=== PATIENT | female | born 1980 | race Two or more races ===

== ENCOUNTER 2025-05-16 22:34 | Emergency (ER) | payer MEDICAID, OTHER ==
[~2025-05-16] VITALS: Ht 170.2 cm; Wt 82.0 kg
[2025-05-16 22:42] VITALS: TEMP 97.7
[2025-05-16] MEDS: methylPREDNISolone SOD SUCC 125 MG/2 ML VL IV ONE (22:44)
[2025-05-16] MEDS: diphenhydrAMINE HCL 50 MG/1 ML VL IV ONE (22:44)
[2025-05-16] MEDS: ALBUTEROL SULF 2.5 MG/0.5ML(0.5%) NEB SOLN NEB ONE (22:51)
[2025-05-16] MEDS: FAMOTIDINE INJECTION 40 MG in SODIUM CHL 0.9% 100 ML IV ONE (22:57)
--- NOTE | 2025-05-16 23:09 | ED.PDOC ---
HPI Allergic reaction HPI Comments 44 y/o F, with a history of hypertension - unmedicated, is BIBA from private residence for c/c of anaphylaxis. Patient reports on sudden onset of symptoms at 2130, this evening, while returning home from work. She reports history of allergies to felines but denies any known recent exposure, this evening. Associated facial swelling, itchiness, and shortness of breath. En route, patient was given 5mg Albuterol and 0.5mg Atrovent - DuoNeb and 0.50mg of benarydryl and 0.6mg of epinephrine by EMS personnel. Chief Complaint: Allergic Reaction Time Seen by MD: 22:35 Reviewed Notes: Nurses Notes, Methods Time Analyst Notes, Medications, Allergies Allergies: Coded Allergies: NO KNOWN ALLERGIES (Unverified , 05/16/25) Home Meds Active Scripts Diphenhydramine Hcl (BENADRYL CAPSULE) 25 Mg Cp, 25 MG PO Q6HP PRN, #60 CAP Prov:AMADEO POE MD 05/16/25 Famotidine (PEPCID TABLET) 20 Mg Tb, 1 TAB PO BID PRN, #60 TAB 5 Refills Prov:AMADEO POE MD 05/16/25 Epinephrine (Anaphylaxis) (Auvi-Q) 0.1 Mg/0.1 Ml Inj, 0.1 MG IJ O PRN for 1 Day, #1 INJ 3 Refills Prov:AMADEO POE MD 05/16/25 Prednisone (Prednisone) 20 Mg Tab, 20 MG PO BID for 5 Days, #10 TAB Prov:AMADEO POE MD 05/16/25 Information Source: Patient, Emergency Med Personnel Mode of Arrival: EMS Severity: Moderate Rash: None SOB: Moderate Difficulty swallowing: Moderate Pruritus: Moderate Timing: Minutes Duration: Since onset Prehospital treatment: 12 Lead EKG, Breathing Tx (5mg Albuterol and 0.5mg Atrovent DuoNeb), Fingernail Sculpturer, Treatment (0.50mg benadryl; 0.6 epinephrine) Past Medical History PAST MEDICAL HISTORY: HTN Surgical History: Denies all surgeries FACILITY PLANNER History: Denies all FACILITY PLANNER Hx Family History Family History: Unknown Social History Smoker: Non-Smoker Alcohol: Denies ETOH Use Drugs: Denies Drug Use Lives In: Home All Other Systems: Reviewed and Negative (Comprehensive review of systems are negative unless stated in HPI) Physical Exam General Appearance: No Apparent Distress, Normal HEENT: Pharynx Normal, TMs Normal, Other (bilateral periorbital edema ) Neck: Full Range of Motion, Non-Tender, Normal, Normal Inspection Respiratory: Chest Non-Tender, Lungs Clear, No Accessory Muscle Use, No Respiratory Distress, Normal Breath Sounds Cardiovascular: No Edema, No JVD, No Murmur, No Gallop, Normal Peripheral Pulses, Regular Rate/Rhythm Breast Exam: Deferred Gastrointestinal: No Organomegaly, Non Tender, No Pulsatile Mass, Normal Bowel Sounds, Soft Genitalia: Deferred Pelvic: Deferred Rectal: Deferred Extremities: No calf tenderness, Normal capillary refill, Normal inspection, Normal range of motion, Non-tender, No pedal edema Musculoskeletal : Apperance: Normal Neurologic: Alert, shipping and receiving weigher II-XII nml as Tested, No Motor Deficits, Normal Affect, Normal Mood, No Sensory Deficits Cerebellar Function: Normal Reflexes: Normal Skin: Dry, Normal Color, Warm Lymphatic: No Adenopathy Was a procedure done? Was a procedure done?: No Differential diagnosis (all) Differential Diagnosis: Anaphylaxis, Angioedema, Contact Dermatitis, Hypotension, Respiratory Failure, Shock, Urticaria X-Ray, Labs, Meds, VS Vital Signs Date Time Temp Pulse Resp B/P (MAP) Pulse Ox O2 Delivery O2 Flow Rate FiO2 05/16/25 23:55 75 12 132/84 (100) 97 05/16/25 22:51 23 98 Room Air* 0 21 05/16/25 22:42 Room Air* 0 21 05/16/25 22:42 97.7 76 13 152/83 (106) 96 97.7 05/16/25 22:34 97.6 84 18 139/95 100 97.6 Current Medications Medications (Trade) Dose Ordered Sig/Evan Route Start Time Stop Time Status Last Admin Methylprednisolone Sodium Succinate (Solu Medrol) 125 mg ONCE ONCE IV 05/16/25 22:45 05/16/25 22:46 DC 05/16/25 22:44 Famotidine 40 mg/ Sodium Chloride 104 ml @ 416 mls/hr ONCE ONCE IV 05/16/25 22:45 05/16/25 22:59 DC 05/16/25 22:57 Albuterol (Ventolin Medneb) 2.5 mg ONCE ONCE NEB 05/16/25 22:45 05/16/25 22:46 DC 05/16/25 22:51 Time of 1ST Reevaluation: 23:05 Reevaluation 1ST: Unchanged Patient Education/Counseling: Diagnosis, Treatment Family Education/Counseling: No Family Present SEPSIS Sepsis Screen Date sepsis recognized/suspect: May 16, 2025 Time Sepsis recognized/suspect: 2233 Recent Procedure: No On Antibiotic Therapy: No Respiratory Rate >20: No Heart Rate >90: No Temp<36 C (96.8 F) or >38.3 C: No SBP <90 or MAP <65 mmHG: No New Acute Mental Status Change: No Is the patient on CPAP, BIPAP,: No Physician Orders Fingernail Sculpturer (05/16/25 ) Pulse Oximetry (05/16/25 ) Vital Signs Date Time Temp Pulse Resp B/P (MAP) Pulse Ox O2 Delivery O2 Flow Rate FiO2 05/16/25 23:55 75 12 132/84 (100) 97 05/16/25 22:51 23 98 Room Air* 0 21 05/16/25 22:42 Room Air* 0 21 05/16/25 22:42 97.7 76 13 152/83 (106) 96 97.7 05/16/25 22:34 97.6 84 18 139/95 100 97.6 Medications Medications Dose Ordered Sig/Evan Route Start Time Stop Time Status Last Admin Dose Admin Albuterol 2.5 mg ONCE ONCE NEB 05/16/25 22:45 05/16/25 22:46 DC 05/16/25 22:51 Famotidine 40 mg/ Sodium Chloride 104 ml @ 416 mls/hr ONCE ONCE IV 05/16/25 22:45 05/16/25 22:59 DC 05/16/25 22:57 Methylprednisolone Sodium Succinate 125 mg ONCE ONCE IV 05/16/25 22:45 05/16/25 22:46 DC 05/16/25 22:44 Departure 1 Departure Time of Disposition: 01:00 Impression: Primary Impression: Allergic reaction Disposition: HOME / SELF CARE / HOMELESS Condition: Stable e-Prescriptions Diphenhydramine Hcl (BENADRYL CAPSULE) 25 Mg Cp 25 MG PO Q6HP PRN, #60 CAP Prov: AMADEO POE MD 05/16/25 Famotidine (PEPCID TABLET) 20 Mg Tb 1 TAB PO BID PRN, #60 TAB 5 Refills Prov: AMADEO POE MD 05/16/25 Epinephrine (Anaphylaxis) (Auvi-Q) 0.1 Mg/0.1 Ml Inj 0.1 MG IJ O PRN for 1 Day, #1 INJ 3 Refills Prov: AMADEO POE MD 05/16/25 Prednisone (Prednisone) 20 Mg Tab 20 MG PO BID for 5 Days, #10 TAB Prov: AMADEO POE MD 05/16/25 Discharged With: Self Critical Care Note Critical Care Time?: Yes (35 min-critical care time only) Stability Stability form required: No Heart Score Heart Score: Heart Score Response (Comments) Value History N/A 0 EKG N/A 0 Age N/A 0 Risk Factors N/A 0 Troponin N/A 0 Total 0 I personally scribed for AMADEO POE MD ([email or web address]) on 05/16/25 at 23:09. Electronically submitted by Dieter Khan [email or web address]). AMADEO POE MD May 16, 2025 23:09
[2025-05-16] MEDS ORDERED: FAMO20TA10 PO (23:51)
[2025-05-16] MEDS ORDERED: DIPH25CA51 PO (23:51)
[2025-05-16] MEDS ORDERED: EPIN0.1I11 IJ (23:51)
[2025-05-16] MEDS ORDERED: PRED20TA2 PO (23:51)
[2025-05-16 23:55] VITALS: BP 132/84; PULSE 75; RESP 12; O2SAT 97
[2025-05-17] MEDS: FAMOTIDINE (10MG/ML) 2ML VL IV ONE (00:04)
== END 2025-05-17 00:04 | disposition home or self-care (01) ==
LOC: ER 22:34 → EDBD 22:34 → ER 05-17 00:04
DX: T78.40XA Allergy, unspecified, initial encounter (principal); I10 Essential (primary) hypertension; Z79.52 Long term (current) use of systemic steroids; Z79.899 Other long term (current) drug therapy; X58.XXXA Exposure to other specified factors, initial encounter
CPT/HCPCS: 82947; 94640; 96374; 96375; 99291; J2919; J3490